=== PATIENT | female | born 2005 | race African-American/Black ===

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

== ENCOUNTER 2023-05-02 16:52 | Emergency (ER) | payer OTHER, SELFPAY ==
--- NOTE | ~2023-05-02 | XR_ITS ---
EXAMINATION: XR ankle RT min 3V DATE: 05/02/2023 17:20 INDICATION: Right ankle pain. Injury. TECHNIQUE: 4 views of right ankle were obtained. COMPARISON: Right ankle radiographs 09/27/2020 FINDINGS: There is an oblique fracture of distal fibula. The medial aspect of the fracture line is 2. 9 cm proximal to the level of the tibial plafond. The distal fracture fragment demonstrates 2 mm post erolateral displacement. There is a fracture of the posterior malleolus. There is no significant wide janeth of the medial ankle mortise. There is ankle soft tissue swelling. IMPRESSION: 1. Oblique fracture of distal fibular diaphysis. 2. Fracture of posterior malleolus. Reviewed, dictated and finalized at location E. ONAL PLANNER
[2023-05-02 17:07] VITALS: BP 132/74; PULSE 71; RESP 16; TEMP 37.1; O2SAT 99
--- NOTE | 2023-05-02 17:34 | ED.LOWEXIN ---
HPI - Extremity Injury (Lower) General Chief Complaint: Extremity Injury, Lower Stated Complaint: right ankle pain Source: patient Mode of arrival: ambulatory Limitations: no limitations History of Present Illness HPI Narrative: 17 y/o female presenting for complaint right ankle pain, swelling, and bruising after injury about 3 hours prior to arrival. She states she was walking down stairs, tripped over a toy, and fell down approximately 4 stairs landing on the right foot. Rates pain 9/10. Unable to tolerate bearing weight. Denies numbness or tingling to the foot. Has not taken anything for pain. Related Data Allergies Allergy/AdvReac Type Severity Reaction Status Date / Time No Known Allergies Allergy Verified 05/02/23 17:36 Review of Systems Review of Systems: CONSTITUTIONAL: Denies body aches, fever, chills EYES: Denies visual changes ENT: Denies rhinorrhea, congestion CARDIOVASCULAR: Denies chest pain, palpitations, or edema. RESPIRATORY: Denies cough or dyspnea. GASTROINTESTINAL: Denies abdominal pain, nausea, vomiting, or diarrhea. SKIN: Denies rash, itching, or wounds. MUSCULOSKELETAL: Reports right ankle pain and swelling denies back pain, or myalgia. NEUROLOGIC: Denies headache, numbness, tingling, or weakness. PSYCH: Denies depression or anxiety. All systems reviewed & are unremarkable except as noted in HPI and below PMFSH Past Medical History Medical History (Updated 05/03/23 @ 08:22 by Yancy Ceja, ELIJAH) No pertinent past medical history Comments At time of signature, I have reviewed and agree with nursing past medical, surgical, social and family history unless otherwise noted. Please see nursing chart for further information. There is no relevant family history pertinent to the presenting complaint Exam Narrative: GENERAL: Appears in pain, in no acute distress. CHEST: Speaks in full sentences. No respiratory distress. HEART: Regular rate and rhythm. Normal and equal peripheral pulses. EXTREMITIES: Right ankle pain reported; Right foot has decreased strength with plantar/dorsiflexion; limited range of motion at ankle endorses pain with movement. Moderate swelling and ecchymosis to medial and lateral malleolus, Right distal fib and malleolus point tenderness. Normal foot sensation. No open wounds; pulse palpable and equal bilaterally, skin warm, dry, pink. Capillary refill less than 3 seconds. SKIN: Warm, dry, no rash. NEURO: Alert and oriented x3. PSYCH: Normal mood and affect Course Course Emergency Course: Patient is aware of diagnosis, understands and agrees to treatment plan. Anticipatory guidance given. Patient agrees to follow-up as directed and is aware of reasons to seek care at the emergency department. Portions of this record may have been created with voice recognition software Level of Care: Express Care Visit Vital Signs Vital signs: Vital Signs Temperature 98.8 F 05/02/23 17:07 Pulse Rate 71 05/02/23 17:07 Respiratory Rate 16 05/02/23 17:07 Blood Pressure 132/74 05/02/23 17:07 Pulse Oximetry 99 05/02/23 17:07 Oxygen Delivery Room Air 05/02/23 17:07 Temperature 98.8 F 05/02/23 17:07 Pulse Rate 71 05/02/23 17:07 Respiratory Rate 16 05/02/23 17:07 Blood Pressure 132/74 05/02/23 17:07 Pulse Oximetry 99 05/02/23 17:07 Oxygen Delivery Room Air 05/02/23 17:07 Reviewed Procedures Orthopedic Splinting/Casting right ankle: Splinting/Casting Date: 05/02/23 OCL: posterior Pre-Procedure Neuro Vascular Exam: normal Post-Procedure Neuro Vascular Exam: normal Other Orthopedic Equipment: crutches Additional Comments: Pt tolerated splinting well. MDM - Extremity Injury (Lower) MDM Narrative Medical decision making narrative: Discussed physical exam findings, results of x-ray reviewed with patient. Posterior OCL applied, crutch training provided. Advised supportive measures
[2023-05-02] MEDS: IBUPROFEN 400 MG TABLET 800 MG PO (17:59)
== END 2023-05-02 18:49 | disposition home or self-care (01) ==
PROVIDERS: Emergency Provider Nurse Practitioner Family
DX: S82.431A Displaced oblique fracture of shaft of right fibula, initial encounter for closed fracture (principal); S82.891A Other fracture of right lower leg, initial encounter for closed fracture; W10.9XXA Fall (on) (from) unspecified stairs and steps, initial encounter
CPT/HCPCS: 29515; 73610; 99214; A9270; G0463

== ENCOUNTER 2023-05-10 02:00 | Day surgery (SDC) | payer OTHER, SELFPAY ==
[2023-05-08 18:16] VITALS: BMI 25.9
--- NOTE | 2023-05-08 18:22 | PC.NURSE ---
Report to the Outpatient Waiting Room, entrance under the green pavilion located off [facility], at time 09:00AM on date 05-10-23. Planned Procedure Time: 11:00AM. Time changes happen often and if your time is changed the preop area will call you the afternoon before. - You and your visitor will be asked to self-screen and do not enter if you have any COVID symptoms. - A mask is optional within the hospital at this time. Patients may have clear liquids (water, carbonated beverages, clear teas, apple juice) until 3 hours prior to surgery (08:00AM) with a maximum of 20 ounces. - No food from midnight until time of surgery Take the following medications with a SIP of water the morning of surgery: TRAMADOL NEEDED DO NOT STOP ANY OF YOUR OTHER PRESCRIPTION MEDICATIONS PRIOR TO SURGERY ?EXCEPT THE FOLLOWING Medications to discontinue per physician STOP IBUPROFEN NOW Please no make-up, nail austrian, hairspray, perfume, deodorant, or body powder the day of surgery. No jewelry (including any body piercings) or valuables the day of surgery, leave them at home. Please take a shower or bath the night before, or the morning of, surgery with an antibacterial soap. Wear comfortable, loose fitting clothing. - Jewelry must be removed prior to entering the operating room. Rings and piercings that are not removed may be cut off. - The hospital will not accept responsibility for valuables. - Please leave all valuables, including medications, at home the day of surgery. If you are going home after surgery, a licensed cement truck driver must drive you home. - NO public transportation without another adult if you receive anesthesia. - We recommend that an adult stay with you for 24 hours following discharge. - We also recommend that you do not drive, make important decision, drink alcoholic beverages, or take any drugs that were not prescribed by your health care provider for at least 24 hours after your discharge time. Follow any additional instructions given to you from your surgeon. If you or anyone in your household have experienced Covid symptoms in the past week, please notify your surgeon or the nurse liaison at the phone number below for possible testing. Telephone instructions given to PATIENT and asked if any additional questions and then verbalized understanding. Patient advised to call surgeon office or pre surgery nurse liaison [phone] if any additional questions.
[2023-05-10] VITALS (12 sets, daily range): BP systolic 110–144; BP diastolic 55–82; PULSE 59–66; RESP 12–18; TEMP 36.2–36.8; O2SAT 95–100
--- NOTE | ~2023-05-10 | XR_ITS ---
EXAMINATION: XR surgery orthopedic DATE: 05/10/2023 12:29 INDICATION: Right fibular fracture. TECHNIQUE: 3 intraoperative fluoroscopic views of right ankle were obtained. I was not present. Fluor oscopy exposure time was 61 seconds. COMPARISON: Right ankle radiographs 05/02/2023 FINDINGS: There is an oblique fracture of distal fibular diaphysis status post open reduction interna l fixation with semitubular plate and screws and interfragmentary screw. There is internal fixation o f the tibiofibular syndesmosis with a radiolucent band. Bone fragments posterior to the distal tibia on the lateral radiograph are likely from the posterior malleolus. IMPRESSION: 1. Oblique fracture of distal fibular diaphysis status post open reduction internal fixation. 2. Fixation of the tibiofibular syndesmosis. 3. Fracture of posterior malleolus. Reviewed, dictated and finalized at location A. [facility] [employer] IMPRESSION: 1. Oblique fracture of distal fibular diaphysis status post open reduction inte rnal fixation. 2. Fixation of the tibiofibular syndesmosis. 3. Fracture of posterior malleolus.
--- NOTE | 2023-05-10 06:41 | WPDHPUPDATE1 ---
History and Physical Update Update Date/Time: 05/10/23 06:41 History and Physical has been reviewed, including an updated exam of the patient. There are NO changes in the patient's condition. Risks, benefits, and alternatives have been discussed and questions answered. Patient agrees to proceed with procedure.
[2023-05-10] MEDS: ACETAMINOPHEN 500 MG TABLET 1000 MG PO (09:45)
--- NOTE | 2023-05-10 09:51 | WPDANESEPPF ---
Anes - Initial Pre Proc Eval Procedure: Operation Date: 05/10/23 11:00 Proposed Procedures p Open Reduction Internal Fixation Right Lateral Malleolus Fracture with Tibial Fibula Syndesmosis - Jack Pino MD Date/Time: 05/10/23 09:51 Surgeon: Jack Pino MD Pre Op Diagnosis: right lateral malleolus fx Patient Data Age: 17 Gender: F Height: 1.68 m Weight: 73 kg Allergies Allergy/AdvReac Type Severity Reaction Status Date / Time No Known Allergies Allergy Verified 05/08/23 18:32 Home Medications Medication Instructions Recorded Confirmed Type ibuprofen 800 mg tablet 800 mg PO TID PRN pain #30 tabs 05/02/23 05/08/23 Rx oxycodone-acetaminophen 5 mg-325 1 - 2 tablet PO Q4-6H PRN pain #30 05/10/23 Rx mg tablet tabs Patient hx anesthesia problems: none Family hx anesthesia problems: none Results Review: All pre-operative results and documents have been reviewed as part of the pre-operative evaluation. [facility] Past Medical History Medical History No pertinent past medical history Social History Social History Smoking status: Never smoker Tobacco type: e-cigarettes/vaping Second hand tobacco smoke exposure: Yes (MOTHER SMOKES) Alcohol intake: never Substance use: current Substance use type: marijuana Other substance usage details: DAILY Last use: 05-08-23 Lack of Transportation: No Lack of Food: Sometimes True Current Housing: I Do Not Have Housing Concerned About Future Housing: No Difficulty Paying Gas/Electric Bills: No Difficulty Paying for Meds: No Currently Unemployed: No Education: Decline to Answer Difficulty w/ Childcare or Family Care: No Living arrangements: with family Spiritual care concerns: No Anes - Eval Final PreProcedure Day of Procedure 05/10/23 09:51 Patient weight: normal Heart: regular rate and rhythm Lungs: clear to auscultation Airway: Mallampati scale class II Neurological: alert and oriented Last oral intake: >/= 8 hours ASA classification: II Emergent: no Anesthetic plan: proceed Anesthesia type and monitoring: general LMA and standard monitoring Results Review: All pre-operative results and documents have been reviewed as part of the pre-operative evaluation. Informed Consent: The patient's anesthetic plan and its attendant risks and benefits were discussed with the patient/family/POA. Questions were solicited and answers provided to the satisfaction of the patient/family/POA.
[2023-05-10] MEDS: LACTATED RINGERS 1,000 ML 30 ML IV CONT ×2 (09:53→12:45)
[2023-05-10] MEDS: KETOROLAC 15 MG/ML VIAL (*BKC) IV PUSH (10:55)
[2023-05-10] MEDS: ceFAZolin 2 GM/D5W 50 ML 2 GM/50 ML BAG IVPB (10:57)
[2023-05-10] MEDS: BUPIVACAINE/EPINEPHRINE 0.5% 10 ML VIAL 20 ML INFILTRATE (11:37)
[2023-05-10] MEDS: fentaNYL CITRATE INJ (*CRX) 100 MCG/2 ML VIAL 25 MCG IV PUSH ×4 (13:14→13:22)
[2023-05-10] MEDS: HYDROmorphone HCL INJ (*CRX) 1 MG/ML SYR 0.5 MG IV PUSH ×3 (13:30→13:56)
--- NOTE | 2023-05-10 13:57 | P.OP_ITS ---
Procedure Note - Detailed Date of Procedure 05/10/23 Pre-op Diagnosis 1. Right lateral malleolus fx 2. Tib fib syndesmosis sprain Post-op Diagnosis Same Procedure Performed Right ankle 1. ORIF distal fibula 2. ORIF tib fib syndesmosis. Surgeon Jack Pino MD Anesthesia General Findings Anatomic reduction of the proximal distal fibula lateral malleolus fracture. Anterior to posterior lag screw. Two of the distal screws were locking. The syndesmosis showed subtle widening with the Cotton test. A single suture button device was utilized. Description of Procedure A general anesthetic was administered. The limb was prepped and draped in the usual sterile fashion with a well-padded tourniquet high on the thigh. A bump was placed under the hip. The limb was exsanguinated and the tourniquet inflated to 300 millimeters of mercury during the procedure. A longitudinal incision was created at the distal fibula. Careful dissection was carried down to bone. No significant fibular nerve branches were encountered. The fracture was carefully exposed. Callus and debris was irrigated from the wound. The fracture was brought out to length. Reduction was accomplished with the reduction forceps. The fixation plate was contoured. Fixation was performed with a combination of cortical and cancellous screws. Fluoroscopy was used throughout the procedure to confirm anatomic reduction and appropriate placement of the implants. The tourniquet was released. Meticulous hemostasis was obtained. Wound was closed in layers with 2-0 Vicryl suture 3-0 Monocryl suture and paola. A sterile dressing with well padded splint was applied. The mikki ent was extubated and brought to the recovery room in stable condition. There were no complications. Implants Accu Med 1/3 tubular 8 hole titanium fibular plate. Accu Med tib fib syndesmosis suture button. Estimated Blood Loss -5.0 Tourniquet Time 58 Complications No immediate complications Condition Stable Disposition PACU [facility] Billing Surgery - Charge Forward: Surgery Billing
[2023-05-10] MEDS: oxyCODONE HCL (*CRX) 5 MG TAB IR PO (14:44)
== END 2023-05-10 15:45 | disposition home or self-care (01) ==
PROVIDERS: Visit Provider Orthopaedic Surgery
PROC: (CPT 27792; principal; 2023-05-10 11:00)
DX: S93.431A Sprain of tibiofibular ligament of right ankle, initial encounter (principal); S82.61XA Displaced fracture of lateral malleolus of right fibula, initial encounter for closed fracture; F17.290 Nicotine dependence, other tobacco product, uncomplicated; F12.90 Cannabis use, unspecified, uncomplicated; Z79.891 Long term (current) use of opiate analgesic; W10.9XXA Fall (on) (from) unspecified stairs and steps, initial encounter
CPT/HCPCS: 27792; 27829; 99199; A9270; C1713; C1769; J0690; J1100; J1170; J1885; J2250; J2405; J2704; J3010; J7120

== ENCOUNTER 2023-06-21 13:07 | Outpatient (CLI) | payer OTHER, SELFPAY ==
--- NOTE | ~2023-06-21 | XR_ITS ---
EXAM: XR ankle RT min 3V DATE: 06/21/2023 13:31 HISTORY: FOLLOW-UP ORIF Apr . COMPARISON: 05/24/2023. FINDINGS: Uncomplicated screw and plate fixation of the fibula. Syndesmotic fixation device. Normal m ineralization. Early healing changes noted in the distal fibular fracture and the posterior malleolus fracture. No new acute fracture or dislocation. No lytic or blastic lesion. Joint spaces are maintai darion. No erosion or periosteal change. Soft tissues within normal limits. IMPRESSION: Healing fibular and posterior malleolus fractures. No radiographic evidence of hardware r elated complication. Reviewed, dictated and finalized at location K. OR IMPRESSION: Healing fibular and posterior malleolus fractures. No radiographic evidence of hardware related complication.
== END 2023-06-21 13:08 | disposition home or self-care (01) ==
PROVIDERS: Visit Provider Orthopaedic Surgery
DX: Z47.89 Encounter for other orthopedic aftercare (principal); S82.841D Displaced bimalleolar fracture of right lower leg, subsequent encounter for closed fracture with routine healing; X58.XXXD Exposure to other specified factors, subsequent encounter
CPT/HCPCS: 73610

== ENCOUNTER 2023-08-17 12:30 | Outpatient (RCR) | payer OTHER, SELFPAY ==
--- NOTE | 2023-07-31 10:57 | PTOPEVAL1 ---
Assessment and note entered by Bryson Barakat, PT Evaluation Information Assessment Status Evaluation Diagnosis Aftercare following R ankle fracture Onset 05/10/23 Subjective Information Reports that she is having pain with walking. Denies having any pain with rest. She does notice increased swelling with activity. She reports that she has had history of falling in the past with bilateral ankle sprains. She is having some trouble going don stairs. Denies any loss of sensation or discomfort when stationary. Reported Pain Level Pain Score 0: Self Report Assessment PT Clinical Summary Patient presents with minor loss in ankle motion and strength at this time. Greatest deficits noted in proprioceptive stability and gait pattern. Patient will benefit from skilled therapy to address these deficits moving forward. Edema is present but does not appear significantly limiting on this date. Plan of Care Interventions Electrical Stimulation,Hot Pack/Cold Pack,Manual Therapy,Neuro Re-education,Therapeutic Activities, Therapeutic Exercise PT Services Indicated Yes Treatment Frequency and 2x/week for 6 visits Duration These treatments will address the objective and functional deficits as defined above. The patient will be advanced safely and appropriately in order for the patient to progress towards his/her prior level of function. Additional exercises will be introduced and as well as a comprehensive home exercise program upon discharge, if needed, ?to ensure carryover of functional gains achieved in the clinic. This treatment plan has been reviewed and agreement upon by the patient.
--- NOTE | 2023-07-31 10:57 | OPREHPOC ---
Outpatient Therapy Plan of Care This is a Multidisciplinary Plan of Care that may contain components documented by all disciplines (PT, OT, and ST.) PT Problem 1 PT Problem #1 Knowledge Deficit PT Goal 1 Goal Independent with [facility] PT Problem 2 PT Problem #2 Impaired Strength PT Goal 1 Goal Demonstrate gross R ankle strength of 5/5 to improve stability Target Visit 6 PT Problem 3 PT Problem #3 Impaired Gait PT Goal 1 Goal Ambulate with even stride length bilaterally for full functional gait cycle Target Visit 8 PT Problem 4 PT Problem #4 Impaired Balance PT Goal 1 Goal Demonstrate ability to maintain dynamic ankle stability on uneven surface for 30 seconds without LOB to improve functional ankle stability.
--- NOTE | 2023-08-23 13:52 | PCPTNOTE ---
Patient was a No Show/No Call for today's Progress Note.
--- NOTE | 2023-10-16 12:31 | PTOPDC ---
Assessment and note entered by Bryson Barakat, PT Evaluation Information Assessment Status Discharge - Pt Not Present Diagnosis Aftercare following R ankle fracture Onset 05/10/23 Subjective Information Reports that she is having pain with walking. Denies having any pain with rest. She does notice increased swelling with activity. She reports that she has had history of falling in the past with bilateral ankle sprains. She is having some trouble going don stairs. Denies any loss of sensation or discomfort when stationary. Assessment PT Clinical Summary Patient has not returned to therapy at this time. Patient will be discharged from skilled therapy due to terminal communication with clinic. Plan of Care PT Services Indicated D/C to [facility]
--- NOTE | 2023-12-03 08:20 | PCPTNOTE ---
Patient last recorded visit on 08/17/23. She did not return for Progress Evaluation. Patient discharged at this time.
== END 2023-10-16 14:04 | disposition home or self-care (01) ==
LOC: ANHPT 12:30
PROVIDERS: Visit Provider Orthopaedic Surgery
DX: Z47.89 Encounter for other orthopedic aftercare (principal)
CPT/HCPCS: 97110; 97112; 97140; 97161; 97530; 99199

== ENCOUNTER 2024-03-22 17:14 | Emergency (ER) | payer SELFPAY ==
[2024-03-22 17:25] VITALS: BP 132/90; PULSE 70; RESP 18; TEMP 36.8; O2SAT 100
--- NOTE | 2024-03-22 17:50 | ED.LOWEXIN ---
HPI - Extremity Injury (Lower) General Chief Complaint: Extremity Injury, Lower Stated Complaint: right foot injury Time Seen by Provider: 03/22/24 17:15 Source: patient Mode of arrival: ambulatory Limitations: no limitations History of Present Illness HPI Narrative: Emely is a 18-year-old female patient presenting to the clinic today with complaints of right 2nd toe pain. She reports she was playing with her niece and jumped on the bed and hit her toe against something hard. Has some bruising noted to the base of the right 2nd toe. Is concerned that the toe may be broken. Was unable to go to work today due to her toe pain Related Data Home Medications Medication Instructions Recorded Confirmed No Home Medications 06/21/23 07/23/23 Allergies Allergy/AdvReac Type Severity Reaction Status Date / Time No Known Allergies Allergy Verified 07/23/23 08:36 Review of Systems Review of Systems: Pertinent positives per HPI. Patient denies any fever, chills, rash, headache, visual changes, dizziness, cough, runny nose, sore throat, shortness of breath, chest pain, palpitations, nausea, vomiting, diarrhea, constipation, abdominal pain, or any urinary issues. [facility] Past Medical History Medical History No pertinent past medical history Surgical History Surgical History History of open reduction and internal fixation (ORIF) procedure (~05/10/23) Rt Lateral Malleolar Fx w/Tib Fib Syndesmosis Social History Social History Smoking status: Never smoker Tobacco type: e-cigarettes/vaping Second hand tobacco smoke exposure: Yes (MOTHER SMOKES) Alcohol intake: never Substance use: current Substance use type: marijuana Other substance usage details: DAILY Last use: 05-08-23 Do You Feel Safe in your Home?: Yes Lack of Transportation: No Lack of Food: Sometimes True Current Housing: I Do Not Have Housing Concerned About Future Housing: No Difficulty Paying Gas/Electric Bills: No Difficulty Paying for Meds: No Currently Unemployed: No Education: Decline to Answer Difficulty w/ Childcare or Family Care: No Living arrangements: with family Spiritual care concerns: No Comments At the time of my signature, I reviewed and agree with the nursing past medical, surgical, social, and family history. There is no relevant family history pertinent to the patient complaint. Exam Narrative: General: Well-developed, well nourished, in no apparent distress Head: Normocephalic, atraumatic. Cardio: Regular rate and rhythm, s1 and s2 normal, no murmur appreciated. Resp: Clear to auscultation bilaterally, no rhonchi, rales, wheezing or rubs. Musculoskeletal: No deformity, bruising noted to the proximal right 2nd toe, tender to palpation over the mid and proximal toe, able to flex and extend the toe against resistance, grossly normal range of motion, muscle strength strong and equal, peripheral pulse strong, no edema, no cyanosis, normal gait and station Course Course Emergency Course: Portions of this record may have been created with voice recognition software. Level of Care: Express Care Visit Vital Signs Vital signs: Vital Signs Temperature 36.8 C 03/22/24 17:25 Pulse Rate 70 03/22/24 17:25 Respiratory Rate 18 03/22/24 17:25 Blood Pressure 132/90 03/22/24 17:25 Pulse Oximetry 100 03/22/24 17:25 Oxygen Delivery Room Air 03/22/24 17:25 Temperature 36.8 C 03/22/24 17:25 Pulse Rate 70 03/22/24 17:25 Respiratory Rate 18 03/22/24 17:25 Blood Pressure 132/90 03/22/24 17:25 Pulse Oximetry 100 03/22/24 17:25 Oxygen Delivery Room Air 03/22/24 17:25 Vital signs reviewed MDM - Extremity Injury (Lower) MDM Narrative Medical decision making narrative: At the time of
== END 2024-03-22 17:55 | disposition home or self-care (01) ==
PROVIDERS: Emergency Provider Nurse Practitioner Family
DX: S99.921A Unspecified injury of right foot, initial encounter (principal); X58.XXXA Exposure to other specified factors, initial encounter
CPT/HCPCS: 99212; G0463

== ENCOUNTER 2025-06-20 15:28 | Emergency (ER) | payer SELFPAY ==
[2025-06-20 15:38] VITALS: BP 150/75; PULSE 79; RESP 18; TEMP 36.4; O2SAT 98
--- NOTE | 2025-06-20 15:49 | ED.URI ---
HPI - URI/Sore Throat General Chief Complaint: Upper Respiratory Infection Stated Complaint: sore throat/trouble breathing Time Seen by Provider: 06/20/25 15:40 Source: patient Mode of arrival: ambulatory Limitations: no limitations History of Present Illness HPI Narrative: Emely is a 20-year-old female patient presenting to the clinic today with complaints of sore throat, headache, cough, and chest congestion. She reports she tested positive for COVID at home. Is reporting a sore throat and wants to be tested for strep. Denies any chest pain or shortness of breath. Has been taking NyQuil for her symptoms. Related Data Home Medications ?Medication ?Instructions ?Recorded ?Confirmed ?Last Taken ?Type No Home Medications 06/21/23 06/20/25 Unknown History Allergies Allergy/AdvReac Type Severity Reaction Status Date / Time No Known Allergies Allergy Verified 06/20/25 15:30 Review of Systems Review of Systems: Pertinent positives per HPI. Patient denies any fever, chills, rash, headache, visual changes, dizziness, shortness of breath, chest pain, palpitations, nausea, vomiting, diarrhea, constipation, abdominal pain, or any urinary issues. [facility] Past Medical History Medical History No pertinent past medical history Surgical History Surgical History History of open reduction and internal fixation (ORIF) procedure (~05/10/23) Rt Lateral Malleolar Fx w/Tib Fib Syndesmosis Social History Social History Smoking status: Never smoker Tobacco type: e-cigarettes/vaping Second hand tobacco smoke exposure: Yes (MOTHER SMOKES) Alcohol intake: never Substance use: current Substance use type: marijuana Other substance usage details: DAILY Last use: 05-08-23 Lack of Transportation: No Lack of Food: Sometimes True Current Housing: I Do Not Have Housing Concerned About Future Housing: No Difficulty Paying Gas/Electric Bills: No Difficulty Paying for Meds: No Currently Unemployed: No Education: Decline to Answer Difficulty w/ Childcare or Family Care: No Living arrangements: with family Spiritual care concerns: No Comments At the time of my signature, I reviewed and agree with the nursing past medical, surgical, social, and family history. There is no relevant family history pertinent to the patient complaint. Exam Narrative: General: Well-developed, well nourished, in no apparent distress Head: Normocephalic, atraumatic Eyes: Pupils equally round and reactive to light bilaterally, EOM intact, sclera and conjunctive clear, no discharge, lids normal Ears: TMs intact and clear, ear canals clear, no drainage, grossly hearing normal. Nose: Nares patent, clear nasal discharge, mild inflammation, no sinus tenderness. Mouth: Oral pharynx red without lesions or masses, good dentition, MMM. Neck: Supple, trachea midline, no enlargement of anterior or posterior cervical nodes, no thyroid masses or goiter palpable. Cardio: Regular rate and rhythm, s1 and s2 normal, no murmur appreciated. Resp: Clear to auscultation bilaterally, no rhonchi, rales, wheezing or rubs Course Course Level of Care: Express Care Visit Vital Signs Vital signs: Vital Signs Temperature 36.4 C L 06/20/25 15:38 Pulse Rate 79 06/20/25 15:38 Respiratory Rate 18 06/20/25 15:38 Blood Pressure 150/75 H 06/20/25 15:38 Pulse Oximetry 98 06/20/25 15:38 Oxygen Delivery Room Air 06/20/25 15:38 Temperature 36.4 C L 06/20/25 15:38 Pulse Rate 79 06/20/25 15:38 Respiratory Rate 18 06/20/25 15:38 Blood Pressure 150/75 H 06/20/25 15:38 Pulse Oximetry 98 06/20/25 15:38 Oxygen Delivery Room Air 06/20/25 15:38 [facility] MDM Narrative Medical decision making narrative: At the time of visit patient is resting comfortably on the exam table. Patient appears to be nontoxic. Complaints of sore throat, headache, cough, and chest congestion. She reports she tested positive for COVID at home. Is reporting a sore throat and wants to be tested for strep. Denies any chest pain or shortness of breath. Has been taking NyQuil for her symptoms. On exam patient has mild TMs intact and clear, clear nasal drainage, mild anterior turbinate inflammation, oral pharynx red without tonsillar enlargement or cervical lymphadenopathy, lung sounds are clear, heart rates regular rate and rhythm. Patient tested positive for COVID at home this morning. Strep test was ordered. Labs: Strep test was negative. We will send strep for culture. Plan: Patient has COVID-19. Denies needing a work note. Lung sounds are clear and there is no sign of bacterial infection in the clinic today. Supportive measures were discussed with the patient and they voiced understanding discharge instructions and agrees to treatment plan. Return precautions reviewed Differential Diagnosis Differential Diagnosis: Differential diagnostic considerations for upper respiratory infection include upper respiratory infection, croup, otitis media, sinusitis, viral infection, bronchitis, influenza, pharyngitis, strep, uvulitis. Lab Data Labs: Lab Results 06/20/25 Range/Units 15:35 POC Grp A Strep Screen Negative (Negative) Discharge Plan Discharge Clinical Impression: COVID-19 Patient Disposition: Home Condition: Stable Instructions: Antibiotic Form, COVID-19 (Coronavirus Disease 2019) (ED) Additional Instructions: Strep test was negative in the clinic today. We will send strep for culture if this comes back positive we will contact you and place you on antibiotics at that time. May take DayQuil/NyQuil for cold/flu symptoms Lung sounds are clear in the clinic today and there is no sign of bacterial infection. Increase fluids and stay well hydrated May take Tylenol or motrin as directed on bottle for pain/fever May use Flonase 1 spray in each nare daily May take OTC antihistamines such as Zyrtec or Claritin daily as directed on bottle May apply Vicks vapor rub to chest to open sinuses Sinus rinses for congestion Cepacol spray, cough drops, throat lozenges, warm tea with honey/lemon, gargle salt water to soothe throat BRAT diet for diarrhea Clear liquids x 24 hours then advance as tolerated for nausea/vomiting Go to the ED if you develop a worsening in your condition- high fever not controlled by Tylenol or Motrin, dehydration, weakness, lethargy, shortness of breath, or chest pain. Follow up with your PCP in 3-5 days if symptoms persist. Patient Language: Azeri Prescriptions: No Action No Home Medications Follow-up/Referrals: [facility] [Primary Care Provider, Internal Medicine] Time of Disposition: 15:51 Quality NIHSS Nursing Documentation ED NIH nursing documentation: reviewed/agree
[2025-06-20 15:53] LABS: EDSTREPNEGPOS1 Negative (Negative)
== END 2025-06-20 15:53 | disposition home or self-care (01) ==
PROVIDERS: Emergency Provider Nurse Practitioner Family
DX: U07.1 COVID-19 (principal); F17.290 Nicotine dependence, other tobacco product, uncomplicated
CPT/HCPCS: 87081; 87880; 99212; 99213; G0463